=== PATIENT | female | born 1990 | race Caucasian/White ===

== ENCOUNTER → 2025-03-18 | Outpatient (CLI) | payer BC, SELFPAY ==
[2025-03-18 10:57] LABS: Collection Type, Urine Clean Catch
[2025-03-18 11:27] LABS: Basophils # (Auto) 0.0 Thou/mm3 (0.0-0.2); Basophils % (Auto) 1 % (0-2.5); Eosinophils # (Auto) 0.2 Thou/mm3 (0.0-0.5); Eosinophils % (Auto) 3 % (0-10); Hematocrit 41.6 % (36.0-46.0); Hemoglobin 13.6 g/dL (12.0-16.0); Immature Granulocytes Auto 0.01 Thou/mm3 (0.00-0.00); Lymphocytes # (Auto) 1.6 Thou/mm3 (1.0-4.8); Lymphocytes % (Auto) 28 % (10-50); Mean Corpuscular HGB Conc 32.7 g/dl (31.0-37.0); Mean Corpuscular Hemoglobin 26.9 pg (25.0-35.0); Mean Corpuscular Volume 82 fL (80-100); Monocytes # (Auto) 0.5 Thou/mm3 (0.0-0.8); Monocytes % (Auto) 8 % (0-12); Neutrophils # (Auto) 3.4 Thou/mm3 (1.8-7.7); Neutrophils % (Auto) 60 % (37-80); Nucleated Red Blood Cell # 0.00 Thou/mm3 (0.00-0.00); Nucleated Red Blood Cell % 0 /100 WBC (0); Platelet Count 253 Thou/mm3 (140-440); RDW Standard Deviation 38.7 fL (36.4-46.3); Red Blood Count 5.06 Miln/mm3 (4.00-5.20); White Blood Count 5.7 Thou/mm3 (3.6-11.0)
[2025-03-18 11:38] LABS: Glucose Estimated Average 111 mg/dL (80-131); Hemoglobin A1C 5.5 % Hgb (4.8-6.0)
[2025-03-18 11:38] LABS: Bilirubin,Urine Negative (Negative); Blood,Urine 2+ (Negative); Clarity,Urine Clear (Clear/Hazy); Color,Urine Yellow (Lt Yel-Yel); Culture Indicated,Urine Not Indicated; Glucose, Urine Negative (Negative); Ketones,Urine Negative (Negative); Leukocyte Esterase,Urine Negative (Negative); Nitrite,Urine Negative (Negative); PH,Urine 6.0 (5.0-7.0); Protein,Urine Negative (Neg - Trace); RBC,Urine 1 /hpf (0-3); Specific Gravity,Urine 1.029 (1.001-1.035); Squamous Epithelial Cell,Urine 4 /hpf (0-5); Urobilinogen,Urine Negative mg/dL (0.0-1.0); WBC,Urine 2 /hpf (0-5)
[2025-03-18 11:45] LABS: Vitamin D 25 Hydroxy Total 21.9 ng/mL (7.3-40.2)
[2025-03-18 11:55] LABS: Alanine Aminotransferase < 7 U/L (10-49); Albumin, Serum 4.6 gm/dL (3.5-5.0); Albumin/Globulin Ratio 1.6 (1.2-2.2); Alkaline Phosphatase 97 U/L (46-116); Anion Gap 12 (7-16); Aspartate Amino Transferase 21 U/L (0-34); BUN/Creatinine Ratio 13 Ratio (12-20); Bilirubin,Total 0.4 mg/dL (0.3-1.2); Blood Urea Nitrogen 10 mg/dL (9-23); Calcium 9.2 mg/dL (8.3-10.6); Calcium (Corrected) 9.2 mg/dL (8.5-10.1); Carbon Dioxide 25.5 mMol/L (20.0-31.0); Cardiac Risk Estimate 3.9 RATIO (3.7-5.6); Chloride 106 mMol/L (98-107); Cholesterol 181 mg/dL (132-200); Creatinine (Component) 0.8 mg/dL (0.6-1.3); Globulin 2.9 gm/dL (2.3-3.5); Glucose 91 mg/dL (74-106); HDL Cholesterol 46 mg/dL (40-60); LDL Cholesterol,Calculated 113 mg/dL (0-130); Osmolality,Calculated 283 (275-295); Potassium 3.7 mMol/L (3.4-5.1); Sodium 143 mMol/L (136-145); Thyroid Stimulating Hormone 0.91 uIU/mL (0.55-4.78); Total Protein 7.5 gm/dL (5.7-8.2); Triglycerides 109 mg/dL (30-150); eGFR > 60 See Note
[2025-03-18 15:16] LABS: RA Screen Negative (Negative)
[2025-03-21 11:06] LABS: PTT-LA Screen 34 seconds (< OR = 40); dRVVT Screen 40 seconds (< OR = 45)
[2025-03-24 22:05] LABS: Sjogren's antibody (SS-A) <1.0 NEG AI (<1.0 NEGATIVE); Sm Antibody <1.0 NEG AI (<1.0 NEGATIVE)
[2025-03-25 06:24] LABS: ANA Screen, IFA POSITIVE (NEGATIVE); ANA Titer 1:640 titer; Actin Antibody (IgG)* <20 U; Complement Component C3* 168 mg/dL (83-193); Complement Component C4c* 28 mg/dL (15-57); DNA (ds) Antibody* <1 IU/mL; Gastric Parietal Cell Ab* <20.0 U; Mitochondrial Ab NEGATIVE (NEGATIVE); Myocardial Ab, IF NEGATIVE (NEGATIVE); Scl-70 Antibody* 1.1 POS AI (<1.0 NEGATIVE); Sjogren's Antibody (SS-B) <1.0 NEG AI (<1.0 NEGATIVE); Sm/RNP Antibody <1.0 NEG AI (<1.0 NEGATIVE); Striated Muscle Ab NEGATIVE (NEGATIVE); Thyroid Peroxidase Antibodies* 1 IU/mL (<9)
== END | disposition home or self-care (01) ==
PROVIDERS: PCP Family Medicine; Referring Provider Registered Nurse; Visit Provider Registered Nurse
DX: Z00.00 Encounter for general adult medical examination without abnormal findings (principal)
CPT/HCPCS: 36415; 80053; 80061; 81001; 82306; 83036; 83516; 84443; 85025; 85613; 85730; 86015; 86038; 86160; 86225; 86235; 86255; 86376; 86430

== ENCOUNTER → 2025-05-20 | Outpatient (CLI) | payer BC, SELFPAY ==
[2025-05-21 08:52] LABS: BVAG Candida Negative (Negative); Bacterial Vaginosis Markers Negative (Negative); Candida glabrata Negative (Negative); Candida krusei PCR Negative (Negative); Trichomonas Negative (Negative)
== END | disposition home or self-care (01) ==
LOC: SLDO 14:20
PROVIDERS: Referring Provider Specialist; Visit Provider Specialist
DX: B37.89 Other sites of candidiasis (principal); N76.0 Acute vaginitis; A59.01 Trichomonal vulvovaginitis
CPT/HCPCS: 81514

== ENCOUNTER 2025-06-26 07:10 | Emergency (ER) | payer BC, SELFPAY ==
[2025-06-26 07:13] VITALS: BMI 27.4
[2025-06-26 07:37] VITALS: BP 103/70; PULSE 84; RESP 17; TEMP 36.8; O2SAT 97
--- NOTE | 2025-06-26 08:24 | EDNOTE_ITS ---
<Statement entered by Barbara Burger MD - 07/18/25 06:19> As co-signing physician, I was present and available for consult prn. I concur with the plan and care as documented by the midlevel provider. ED Ear RME/HPI General Chief complaint: Ear Stated complaint: EAR PAIN AND NUMBNESS TO R PARCIAL FACE Time Seen by Provider: 06/26/25 07:27 Arrival date/time: 06/26/25 07:10 This is a 34-year-old female comes into emergency room with complaints of right ear pain. Patient states symptoms started 2 days ago. Patient states the pain even extends to tragus. Patient denies any other symptoms. Related Data Home Medications ?Medication ?Instructions ?Recorded ?Confirmed vitamins with calcium 1 tab PO DAILY 01/14/22 08/05/22 no.72-iron 27 mg-folic acid 1 mg tablet ( Vitamins Plus Low Iron) Previous Rx's ?Medication ?Instructions ?Recorded ibuprofen 800 mg tablet 800 mg PO Q6H PRN pain #20 t abs 06/26/25 Allergies Allergy/AdvReac Type Severity Reaction Status Date / Time No Known Allergies Allergy Verified 06/26/25 07:19 Review of Systems Review of Systems Systems Reviewed: All systems reviewed, normal except as documented Past Medical History Past Medical History REPRODUCTIVE: Positive Previous Pregnancies ( X1, SAB X1) Surgical History SURGICAL: Negative Section Social History SOCIAL: SMOKING STATUS: Never smoker ALCOHOL: Never LIVES WITH: Spouse ED Exam Narrative Physical exam: VITAL SIGNS: Reviewed. GENERAL APPEARANCE: Alert and interactive, follows commands, no acute distress HEAD AND FACE: Non-traumatic. ENT: PERRL, conjuctiva pink and clear, eyelid no trauma, Mucous membrane moist. Right ear canal swollen erythemic hard to see structures in the ear NECK: Supple, nontender, no nuchal rigidity. CHEST: No tenderness, no crepitus, no paradoxical movement, no retractions. LUNGS: breathing even and unlabored HEART: Regular rate, cap refill less than 2 seconds ABDOMEN: Soft, nondistended, no guarding, nontender, no rebound, no masses, NEUROLOGICAL: Gross motor function intact sensory function intact, Appropriate for age. MUSCULOSKELETAL: low back nontender, full range of motion. no midline tenderness, no meningismus, no step offs EXTREMITIES: No redness no swelling no skin breakdown on bilateral foot and leg. Distal neurovascular status intact bilateral foot SKIN: Color pink, dry, no rash Course Quality Measures none Orders Category Date Time Status Amoxicillin/Pot Clav 875 [Augmentin 875] Med 06/26/25 08:33 Discontinued 1 tab PO X1 ONE Ibuprofen Tab [Motrin Tab] Med 06/26/25 08:27 Discontinued 800 mg PO X1 ONE cefTRIAXone [Rocephin] 1,000 mg Med 06/26/25 08:24 Discontinued Lidocaine 1% Vial 20 ml [Xylocaine 1% 20 ML] 2.1 ml IM X1 Vital Signs Vital signs: Vital Signs Temperature 98.3 F 06/26/25 07:37 Pulse Rate 84 06/26/25 07:37 Respiratory Rate 17 06/26/25 07:37 Blood Pressure 103/70 06/26/25 07:37 Pulse Oximetry (%) 97 06/26/25 07:37 Oxygen Delivery Method Room Air 06/26/25 07:37 Ear MDM Narrative MDM Narrative:: Spoke to patient at length it is hard to see inside the ear canal because it so swollen and erythemic. Will treat for inner and outer ear infection. Will send patient home with Augmentin and ofloxacin drops. Rocephin initially ordered. Patient did not want IM injection changed to Augmentin which I went to send patient home with. Patient told to make sure she follows up with primary provider in 1 to 2 days. [place] to the emergency room symptoms change or worsen. Patient verbalized understanding feels comfortable plan of care. Dragon dictation: Although this document has been carefully reviewed, there may still be some phonetic and other typographical errors. These errors are purely grammatical due to imperfections in the software program and should not be construed in any way to compromise the substance of the patient's medical care during this visit. Patient data External records reviewed:: [facility] previous records Clinical information provided by:: patient Social determinants that could affect healthcare access:: none Patient has the following chronic illnesses:: none How is presenting disease/condition affected by chronic disease/condition?: no chronic disease Evaluation data The following diagnostics were reviewed and interpreted by me:: other (specify) (none ) Lab and/or radiology exams considered but not ordered:: none Interpretation Summary: see note Medications / Prescriptions Medications or Prescriptions considered but not ordered:: none Medication administrations:: Medication Administration History Discontinued Medications Amoxicillin/Clavulanate Potassium (Amoxicillin/Pot Clav 875 Tablet) 1 tab PO X1 ONE Stop: 06/26/25 08:34 Last Admin: 06/26/25 08:45 Dose: 1 tab Documented By: EDMUNDO Ceftriaxone Sodium 1,000 mg/ (Lidocaine HCl 2.1 ml) 0 mg IM X1 ONE Stop: 06/26/25 08:25 Last Admin: 06/26/25 08:46 Dose: Not Given Documented By: EDMUNDO Non-Admin Reason: Patient Refused Ibuprofen (Ibuprofen Tab 400 Mg Tablet) 800 mg PO X1 ONE; Protocol Stop: 06/26/25 08:28 Last Admin: 06/26/25 08:45 Dose: 800 mg Documented By: EDMUNDO See MAR Consultations Consultation(s) initiated? (list below): No Diagnosis Ear Differential Diagnosis: otitis externa, otitis media and other (Mastoiditis) Most likely diagnosis given after review of the tests above:: Otitis externa Admission Indicated Admission indicated?: not indicated Admission Request Was there a request for admission?: No Disposition Plan Disposition Plan: Discharge Discharge Attestation Discharge Attestation: The patient and all family members were given an opportunity to ask questions and understood the discharge instructions. Discharge instructions specifically effects, indications for sooner follow up or return to the emergency department, and the expected course of current diagnosis. Patient condition: Stable Discharge Plan Plan Patient Disposition: HOME (Self Care) Patient condition on transfer: Stable Prescriptions/Referrals Prescriptions/Med Rec: New ibuprofen 800 mg tablet 800 mg PO Q6H PRN (Reason: pain) Qty: 20 0RF No Action Vitamin Plus Low Iron 27 mg iron- 1 mg tablet 1 tab PO DAILY Patient Comments: Take 1 tablet by mouth once a day Referrals: Maxwell Vazquez MD [Primary Care Provider, Family Practice] - In 1 week Problem List Clinical Impression: Otitis externa, Otitis media Patient/Caregiver Discharge Instructions Discharge Activity: activity as tolerated Education Materials: ED Otitis Media Antibiotic ..., ED External Ear Infection (Adult) Additional Instructions: Make an appointment with primary provider in 1 to 2 days. Come back to the emergency room symptoms change or worsen. Print Language: Welsh Stand Alone Forms: Lakisha Award Info., Patient Portal Info Letter FARSHAD/LEILA Supervising Physician FARSHAD/LEILA Supervising Physician: diane
[2025-06-26] MEDS: IBUPROFEN TAB 400 MG TABLET 800 MG PO (08:45)
[2025-06-26] MEDS: AMOXICILLIN/POT CLAV 875 TABLET 1 TAB PO (08:45)
== END 2025-06-26 08:54 | disposition home or self-care (01) ==
PROVIDERS: Emergency Provider Emergency Medicine; PCP Family Medicine
DX: H60.91 Unspecified otitis externa, right ear (principal); H66.91 Otitis media, unspecified, right ear
CPT/HCPCS: 99281; A9270